=== PATIENT | male | born 1965 | race Caucasian/White ===

== ENCOUNTER 2017-03-22 06:27 | Emergency (ER) | payer OTHER ==
[~2017-03-22] VITALS: Ht 121.9 cm; Wt 108.9 kg
[~2017-03-22 06:27] MED LIST: ASPIR 8181 MG PO; ASPIRIN EC81 MG PO; ATORVASTATIN CA80 MG PO; AUGMENTIN250 MG/5 M PO; AZITHROMYCIN250 MG PO; CARVEDILOL3.125 MG PO; CEPHALEXIN500 MG PO; CLINDAMYCIN HC300 MG PO; CLOPIDOGREL75 MG PO; DILAUDID4 MG PO; HUMALOG MI100 UNIT/2 SUB-Q; HUMALOG100 UNIT/1 SUB-Q; LANTUS100 UNIT/1 SUB-Q; LANTUS100 UNITS/ SUB-Q; LISINOPRIL10 MG PO; LOPERAMIDE2 MG PO; NITROSTAT0.4 MG SL; NOVOLIN R100 UNIT/1 IJ; NOVOLOG100 UNITS/ SUB-Q; OXYCODONE HCL10 MG PO; TYLENOL EXTRA500 MG PO; ZESTORETIC 20-251 EA PO
[2017-03-22] MEDS ORDERED: BACTRIM DS TAB1 EACH PO (12:09)
[2017-08-05] MEDS ORDERED: NEURONTIN300 MG PO (23:02)
== END 2017-03-22 12:25 | disposition home or self-care (01) ==
LOC: ED 06:27
DX: T87.43 Infection of amputation stump, right lower extremity (principal); E10.65 Type 1 diabetes mellitus with hyperglycemia; I10 Essential (primary) hypertension; I25.2 Old myocardial infarction; R11.2 Nausea with vomiting, unspecified; Z94.4 Liver transplant status; Z88.5 Allergy status to narcotic agent; Z79.899 Other long term (current) drug therapy; Z79.4 Long term (current) use of insulin; Z79.82 Long term (current) use of aspirin; Z89.442 Acquired absence of left ankle; Z89.432 Acquired absence of left foot; Z89.431 Acquired absence of right foot; Z89.512 Acquired absence of left leg below knee; Z89.511 Acquired absence of right leg below knee
CPT/HCPCS: 36415; 80053; 81001; 82010; 83605; 85025; 87040; 96361; 96365; 96375; 96376; 99284; J0692; J1885; J2405; J7030

== ENCOUNTER 2017-03-26 01:30 | Emergency (ER) | payer OTHER, MEDICARE ==
[~2017-03-26] VITALS: Ht 121.9 cm; Wt 108.9 kg
[~2017-03-26 01:30] MED LIST changes: +BACTRIM DS TAB1 EACH PO
[2017-03-26] MEDS ORDERED: LISINOPRIL20 MG PO (01:49)
[2017-03-26] MEDS ORDERED: NORCO 5-325 TA1 EACH PO (04:01)
[2017-03-26] MEDS ORDERED: ZOFRAN ODT4 MG PO (04:01)
[2017-08-05] MEDS ORDERED: NEURONTIN300 MG PO (23:02)
== END 2017-03-26 04:22 | disposition home or self-care (01) ==
LOC: ED 01:30
DX: M25.551 Pain in right hip (principal); T87.43 Infection of amputation stump, right lower extremity; I10 Essential (primary) hypertension; E11.9 Type 2 diabetes mellitus without complications; I25.2 Old myocardial infarction; Z95.5 Presence of coronary angioplasty implant and graft; Z88.5 Allergy status to narcotic agent; Z79.82 Long term (current) use of aspirin; Z79.899 Other long term (current) drug therapy; Z79.4 Long term (current) use of insulin; X50.9XXA Other and unspecified overexertion or strenuous movements or postures, initial encounter; Y93.89 Activity, other specified
CPT/HCPCS: 73502; 73560; 80053; 81001; 85025; 85651; 86140; 87070; 87077; 87088; 87186; 87205; 96374; 96375; 99283; J1170; J2405

== ENCOUNTER 2017-03-30 14:28 | Emergency (ER) | payer OTHER, MEDICARE ==
[~2017-03-30] VITALS: Ht 137.2 cm; Wt 117.9 kg
[~2017-03-30 14:28] MED LIST changes: +LISINOPRIL20 MG PO; +NORCO 5-325 TA1 EACH PO; +ZOFRAN ODT4 MG PO
[2017-08-05] MEDS ORDERED: NEURONTIN300 MG PO (23:02)
== END 2017-03-30 21:30 | disposition short-term general hospital (02) ==
LOC: ED 14:28
DX: E11.69 Type 2 diabetes mellitus with other specified complication (principal); M86.9 Osteomyelitis, unspecified; I10 Essential (primary) hypertension; I25.2 Old myocardial infarction; Z89.431 Acquired absence of right foot; Z89.412 Acquired absence of left great toe; Z89.422 Acquired absence of other left toe(s); Z88.5 Allergy status to narcotic agent; Z79.4 Long term (current) use of insulin; Z79.899 Other long term (current) drug therapy; Z95.5 Presence of coronary angioplasty implant and graft; Z79.02 Long term (current) use of antithrombotics/antiplatelets
CPT/HCPCS: 73560; 80053; 81001; 83605; 85025; 85730; 87040; 87070; 87075; 87077; 87186; 87205; 96361; 96374; 96375; 96376; 99285; J0696; J1170; J2405; J3370; J7030; J7060

== ENCOUNTER 2017-05-07 14:47 | Emergency (ER) | payer OTHER, MEDICARE ==
[~2017-05-07] VITALS: Ht 137.2 cm; Wt 117.9 kg
[2017-05-07] MEDS ORDERED: FAMCICLOVIR500 MG PO (18:34)
--- NOTE | 2017-05-08 06:47 | EKG ---
[facility] [address] [facility] [place] [address] Signed Sinus rhythm with frequent premature ventricular complexes Left axis deviation Inferior infarct (cited on or before 21-APR-2016) Abnormal ECG When compared with ECG of 21-APR-2016 18:05, premature ventricular complexes are now present Confirmed by WHITNEY CRUZ MD ([id number]) on 05/08/2017 6:46:47 AM Electronically Signed By: WHITNEY CRUZ MD 05/08/17 0647 PATIENT NAME: SAMINA RIVAS JOI Electrocardiogram DATE OF : 65 PHYSICIAN: WHITNEY CRUZ MD REPORT #: [id number] REPORT IS CONFIDENTIAL AND NOT TO BE RELEASED WITHOUT AUTHORIZATION
[2017-08-05] MEDS ORDERED: NEURONTIN300 MG PO (23:02)
== END 2017-05-07 18:44 | disposition home or self-care (01) ==
LOC: ED 14:47
DX: R07.89 Other chest pain (principal); B02.9 Zoster without complications; I10 Essential (primary) hypertension; E11.9 Type 2 diabetes mellitus without complications; I25.2 Old myocardial infarction; Z95.5 Presence of coronary angioplasty implant and graft; Z88.7 Allergy status to serum and vaccine; Z88.5 Allergy status to narcotic agent; Z79.4 Long term (current) use of insulin; Z79.899 Other long term (current) drug therapy; Z79.82 Long term (current) use of aspirin
CPT/HCPCS: 71045; 80053; 84484; 85025; 85379; 96374; 96375; 96376; 99284; J2405; J3010

== ENCOUNTER 2017-06-14 16:48 | Inpatient (IN) | payer OTHER, MEDICARE ==
[~2017-06-14] VITALS: Ht 137.2 cm; Wt 108.9 kg
[~2017-06-14 16:48] MED LIST changes: +FAMCICLOVIR500 MG PO
[2017-06-14] MEDS ORDERED: BACTRIM DS TAB1 EACH PO (17:10)
--- NOTE | 2017-06-20 09:46 | NUR ---
PT ARRIVED TO UNIT VIA . PT STATES HE HAS HAD L ARM SWELLING, REDNESS AND WEEPING FOR THE PAST FEW DAYS. FINGER TIPS NOTED TO BE RED WITH ABSENTS OF SKIN IN PORTIONS OF THE FINGER AT VARIES STAGES OF HEALING. PT STATES THAT HE HAS BEEN UNABLE TO GET HIS WEDDING RING OFF DUE TO SWELLING. PT IS CONCERNED THAT HIS ARM IS WORSE THEN HIS STUMP AT THIS TIME. WILL SPEAK WITH DR. WILSON PRIOR TO OR.
--- NOTE | 2017-06-20 11:56 | NUR ---
LE 1130: IN TO CHECK ON PT, PT ATCHING TV. AT BEDSIDE. IV ABX INFUSING. CBG 87, PT DENIES SYMPTOMS OF HYPOGLYCEMIA AT THIS TIME. WILL CONTINUE TO MONITOR. NO FURTHER NEEDS AT THIS TIME, CALL LIGHT IN REACH.
--- NOTE | 2017-06-20 15:02 | NUR ---
06/20/17 Rohan2 Destiny Isaacs 1452-PATIENT ARRIVED TO PACU ON 10L MASK O2 SAT 100% PATIENT NONAROUSABLE. RIGHT KNEE DRESSING CDI ELEVATED ON PILLOW ICE APPLIED. THIGH IS WARM TO TOUCH. 1459-NEW ORDER RECEIVED FROM KARLY 02/28 AMP D50 PUSHED GLUCOSE 87 WILL RECHECK IN 30 MINUTES AND GIVE ADDITIONAL HALF AMP IF GLUCOSE LESS THAN 100. PATIENT AROUSING OPENING EYES. 1502-WEANED TO 6L MASK O2 SAT 100%
--- NOTE | 2017-06-20 17:15 | NUR ---
Patient just transferred from surgery. RN in room. Patient given call light and offered emesis bag and warm blanket. Patient has labored breathing and appears to be in pain. Patient appears to have tears on face. RN notified. Patient's family in room. Call light in reach. No other needs at this time.
--- NOTE | 2017-06-20 17:31 | NUR ---
PT GIVEN 12.5 OF PHENERGAN I.V. FOR EMESIS
--- NOTE | 2017-06-20 17:47 | NUR ---
PT REPORTS PAIN IS 6/10 MUCH BETTER AND TOLERABLE AT THIS TIME.
--- NOTE | 2017-06-20 18:15 | NUR ---
PT CAME FROM PACU AT 1455, PT WAS 10/10 PAIN AND VONITING. DILAUDID AND PHENERGAN ADMINISTERED. PT NOW RESTING QUIELTY IN BED. SHADOWING ON DRESSING, DRESSING IS INTACT. PT TOELRATING CLEAR LIQUIDS AT THIS TIME TO ADVANCE TOLERATED. HIS REPORTS HE WILL VOMIT IF GIVEN PO PAIN MEDICATIONS EVEN IF PRE-MEDICATED WITH NAUSEA MEDICINE GIVEN.
--- NOTE | 2017-06-20 19:10 | NUR ---
REPORT RECIEVED BY DAY SHIFT RN. PATIENT RESTING IN BED WATCHING TV. RR 16. PATIENT DENIES ANY NEEDS AT THIS TIME. CALL LIGHT WITHIN REACH.
--- NOTE | 2017-06-20 20:20 | NUR ---
PATIENT REQUESTED FOOD, FOOD GIVEN PER REQUEST. PATIENT DENIES ANY NEEDS AT THIS TIME. PATIENT DIET, ADVANCE TOLERATED. PATIENT PULSE OX 96 ON ROOM AIR. HEART RATE 108. PATIENT EDUCATED ABOUT OUTPUT. PATIENT STATES HE WILL USE URINAL. PATIENT DENIES ANY OTHER NEEDS AT THIS TIME. WILL RETURN WITH EVENING MEDICATIONS. PATIENT RATES PAIN /10. PATIENT REQUESTED PAIN MEDICATIONS. WILL BRING PRN PAIN MEDICATIONS WITH EVENING MEDICATIONS. PATIENT VERBALIZES UNDERSTANDING. CALL LIGHT WITHIN REACH.
--- NOTE | 2017-06-20 20:40 | NUR ---
PATIENT ASSESSMENT COMPLETED. VITAL SIGNS AND I&OS DOCUMENTED. EVENING MEDICATIONS GIVEN PER ORDER. PATIENT STATES PAIN 09/05. PRN DILAUDID GIVEN PER ORDER. ICE PACKS IN PLACE. PATIENT HAS CONTINUOUS FLUIDS RUNNING AT 125MLS/HR. PATIENT 97 PERCENT OXYGEN SATURATION ON RA. PATIENT EATING FOOD, TOLERATING WELL. PATIENT REPORTS NO NAUSEA AT THIS TIME. PATIENT RESTING IN BED WATCHING TV. PATIENT DENIES ANY OTHER NEEDS AT THIS TIME. CALL LIGHT WITHIN REACH.
--- NOTE | 2017-06-20 22:30 | NUR ---
PATIENTS PAIN REASSESSED. PATIENT STATES PAIN 6/10 WITH A GOAL OF 4/10. PRN PAIN MEDICATION GIVEN PER ORDER. PATIENT REPORTS NO NAUSEA AT THIS TIME. PATIENT RESTING IN BED WATCHING TV. PATIENT DENIES ANY OTHER NEEDS AT THIS TIME. WILL CONTINUE TO MONITOR PAIN. CALL LIGHT WITHIN REACH.
--- NOTE | 2017-06-21 00:18 | NUR ---
PATIENT IN BED WATCHING TV. PAIN REASSESSED. PATIENT RATES PAIN 5/10. PATIENT REQUESTED PAIN MEDICATION WHEN AVAILABLE. DIET SODA PROVIDED PER PATIENT REQUEST. COMMUNICATED WITH PATIENT PLAN OF CARE TO MANAGE PAIN. PATIENT VERBALIZED UNDERSTANDING. PATIENT DENIES ANY OTHER NEEDS AT THIS TIME. CALL LIGHT WITHIN REACH.
--- NOTE | 2017-06-21 01:35 | NUR ---
PATIENT IN BED WATCHING TV. 0200 TYLENOL GIVEN PER ORDER. PATIENT RATES PAIN 6/10. VITAL SIGNS AND I&OS DOCUMENTED. PATIENT GIVEN SNACK AND FRESH ICE WATER. FRESH ICE PACKS APPLIED TO RIGHT LEG. SCANT DRAINAGE NOTED ON NOLA WRAP. WILL CONTINUE TO MONITOR. PATIENT DENIES ANY OTHER NEEDS AT THIS TIME. CALL LIGHT WITHIN REACH. ASSESSMENT COMPLETED.
--- NOTE | 2017-06-21 03:10 | NUR ---
PATIENT GIVNE PRN PAIN MEDICATION FOR 6/10 PAIN IN HIS RIGHT KNEE. PATIENT HAS A SCANT AMOUNT OF DRAINAGE ON DRESSING. ICE APPLIED TO RIGHT KNEE. PATIENT DENIES ANY FURTHER NEEDS. CALL LIGHT IN REACH.
--- NOTE | 2017-06-21 05:14 | NUR ---
PATIENT AWAKE MOST OF THE NIGHT. PAIN CONTROLED WITH PRN PAIN MEDICATION PER ORDER. ADA DIET. PATIENT ON CONTINUOUS FLUIDS. PATIENT ON RA AND CONTINUOUS PULSE OX MONITOR. ICE PACKS TO RIGHT KNEE. SCANT DRAINAGE NOTED ON THE UNDERSIDE OF DRESSING ON RIGHT KNEE. RIGHT KNEE ELEVATED ON PILLOW. PATIENT CAN SELF TRANSFER, NOT OUT OF BED DURING THIS SHIFT. PATIENTS LEFT ARM APPEARS EDEMATOUS, ELEVATED ON PILLOWS FOR COMFORT.
--- NOTE | 2017-06-21 06:29 | NUR ---
PATIENT RESTING IN BED. PATIENT RATES PAIN 5/10. PATIENT I&OS AND VITAL SIGNS DOCUMENTED. PATIENT GIVEN PHONE AND MENU SO HE CAN ORDER BREAKFAST. FRESH WATER GIVEN. COFFEE GIVEN TO PATIENT PER PATIENT REQUEST. ASSESSMENT COMPLETED. ICE PACKS IN PLACE ON RIGHT KNEE. SCANT DRAINAGE ON DRESSING NOTED. PATIENT DENIES ANY OTHER NEEDS AT THIS TIME. CALL LIGHT WITHIN REACH. PATIENT WATCHING TV.
--- NOTE | 2017-06-21 06:45 | NUR ---
PATIENT GIVEN PRN PAIN MEDICATION PER ORDER. PATIENT RATES PAIN AT A 6/10. NO FURTHER NEEDS NOTED. CALL LIGHT IN [facility].
--- NOTE | 2017-06-21 07:40 | NUR ---
REPORT RECEIVED FROM SUKH, ASSUMING PATIENT'S CARE AT THIS TIME. PATIENT IN BED AWAKE, REPORT 08/06. PATIENT WAS MEDICATED FOR PAIN PER ENVELOPE STAMPING MACHINE OPERATOR. IV SITE PATENT AND FLUID INFUSING WELL. DRESSING ON BELOW RIGHT KNEE HAS SOME BLOODY DRAINAGE. WILL CONTINUE TO MONITOR.
--- NOTE | 2017-06-21 07:43 | NUR ---
PATIENT SITTING UP IN BED WASHED HANDS AND FACE. PATIENT REFUSED ORAL CARE AND BATH. CALL BUTTON IN REACH. NO OTHER NEEDS AT THIS TIME.
--- NOTE | 2017-06-21 09:30 | NUR ---
PATIENT RESTING BED. REPORTS 6/10 PAIN. PATIENT WAS MEDICATED. OTHER MORNING MED ADMINISTERED BY PHYSICALLY IMPAIRED TEACHER WITH HER INSTRUCTOR.
--- NOTE | 2017-06-21 09:45 | OR ---
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 PROCEDURE: Revision BKA amputation. ANESTHESIA: General. SPECIMENS: The revised stump was sent as a single specimen. WHAT WAS DONE: The patient was taken to the operating room. After anesthesia was induced and airway secured, the right lower extremity was positioned, prepped and draped in a routine sterile fashion. The leg was exsanguinated with elevation. Pneumatic tourniquet about the upper thigh was inflated to 300 mmHg pressure. We then outlined a fishmouth incision and made a fusiform the open draining wound. We then developed full-thickness flaps anteriorly and posteriorly. We did not enter the ulcerated area and it was simply kept on the end of the stump. We then reflected the anterior flap back about 4 cm and resected about an additional 3 cm of distal tibia and then about 3 cm of distal fibula as well. The neurovascular structures were identified, clamped, and doubly ligated. The wound was then gently irrigated. We beveled the anterior aspect of the tibia. We then placed multiple sutures of 0 Vicryl in the deep fascia to close the wound. Subcutaneous tissue was closed with 2-0 Vicryl and the skin with kamlesh. Sterile dressings were applied and the patient was awakened, taken to the recovery room where he arrived in stable condition. Counts were correct and antibiotic protocols were followed. Dong Juarez MD Electronically Signed By: DONG JUAREZ MD 06/21/17 0945 PATIENT NAME: SAMINA RIVAS OPERATIVE REPORT DATE OF : 65 REPORT #: [id number] PHYSICIAN: DONG JUAREZ MD PCP: ALF SORTO MD REPORT IS CONFIDENTIAL AND NOT TO BE RELEASED WITHOUT AUTHORIZATION [address] [place] [address] Signed [facility] /[id number] Copies: ~ Electronically Signed By: DONG JUAREZ MD 06/21/17 0945 PATIENT NAME: SAMINA RIVAS OPERATIVE REPORT DATE OF : 65 REPORT #: [id number] PHYSICIAN: DONG JUAREZ MD PCP: ALF SORTO MD REPORT IS CONFIDENTIAL AND NOT TO BE RELEASED WITHOUT AUTHORIZATION
--- NOTE | 2017-06-21 09:53 | NUR ---
Shortly after giving patient IV dilaudid, pt threw-up approx. 250cc emesis. Pt given IV zofran, cool wash cloth to head, and encouraged to rest. Pt denies nausea through the night with IV dilaudid.
--- NOTE | 2017-06-21 10:00 | NUR ---
STUDENT NURSE REPORTED THAT THE PATIENT HAD EMISIS AND WOULD LIKE TO REST AT THIS TIME. RN NOTIFIED. NO OTHER NEEDS AT THIS TIME.
--- NOTE | 2017-06-21 10:45 | NUR ---
PATIENT RESTING IN BED. REPORTED NAUSEA. PATIENT WAS MEDICATED WITH ZOFRAN BY CHEMIST ORGANIC JOSAFAT. SHIFT ASSESSMENT DONE. PATIENT LUNGS CLEAR. POSITIVE BOWEL TONES. DRESSING ON RIGHT KNEE INTACT WITH SMALL SEROSANGUINEOUSE DRAINAGE. PATIENT STILL COMPLAINING OF PAIN. PATIENT HAS RECEIVED PAIN MED EARLIER. PATIENT HAVE COOL WASH CLOTH OVER FOREHEAD. PATIENT RESTING AT THIS TIME. WILL CONTINUE TO MONITOR
--- NOTE | 2017-06-21 11:10 | NUR ---
PATIENT STILL REPORTED NAUSEA AFTER ZOFRAN WAS ADMINSTERED COUPLE HOURS AGO. PATIENT HAD ABOUT 100 OF EMESIS EARLIER. PATIENT WAS MEDICATED WITH REGLAN. RESTING IN BED AT THIS TIME. COOL WASHCLOTH GIVEN. WILL CONTINUE TO MONITOR
--- NOTE | 2017-06-21 11:15 | NUR ---
DR MILLS WAS IN ROOM TO SEE PATIENT
--- NOTE | 2017-06-21 11:25 | NUR ---
CALL MADE TO DR WILSON ABOUT PATIENT PAIN MEDS.
--- NOTE | 2017-06-21 11:45 | NUR ---
PATIENT SITTING STRAIGHT UP IN BED. FAMILY IN ROOM TO VISIT. PATIENT STILL FEELING NAUSEATED. PATIENT REFUSED LUNCH AT THIS TIME. CALL BUTTON IN REACH. COOL WET WASH CLOTH GIVEN TO PATEINT BY THIS BOOK RETAILER. NO OTHER NEEDS AT THIS TIME.
--- NOTE | 2017-06-21 12:04 | NUR ---
DR WILSON IN ROOM TO SEE PATIENT AND DISCUSS PLAN OF CARE.
--- NOTE | 2017-06-21 15:20 | NUR ---
PATIENT RESTING IN BED, EATING LATE LUNCH. REFUSED TYLENOL. REPORTED THAT HE IS FEELING BETTER A THIS TIME. NO APPARENT DISTRESS NOTED. WILL CONTINUE TO MONITOR
--- NOTE | 2017-06-21 15:30 | NUR ---
PATIENT SITTING UP IN BED WATCHING TV. PATIENT ATE 100% OF HIS LUNCH. PATIENT REQUESTED SOME PAIN MEDICATION. MIYA CHANDRA NOTIFIED. CALL BUTTON IN REACH. NO OTHER NEEDS AT THIS TIME.
--- NOTE | 2017-06-21 16:57 | NUR ---
THIS FAST FOOD SUPERVISOR AND FRANCES GUILLAUME ASSISTED PATIENT UP TO BATHROOM AND BACK TO BED. LINENS CHANGED. PATIENTS GOWN CHANGED. FRESH ICE WATER AND DIET SPRITE AT BEDSIDE TABLE. CALL LIGHT IN REACH. NO OTHER NEEDS AT THIS TIME.
--- NOTE | 2017-06-21 17:20 | NUR ---
PATIENT RESTING IN BED. DENIES NAUSEA AT THIS TIME. PAIN STILL MINIMAL. PATIENT WAS MEDICATED FOR PAIN EARLIER. TOLERATED WELL.
[2017-06-21] MEDS ORDERED: FAMCICLOVIR500 MG PO (17:54)
--- NOTE | 2017-06-21 17:57 | NUR ---
Medications reconciled through interview patient and . Some discrepancies found and corrected
--- NOTE | 2017-06-21 18:03 | NUR ---
PATIENT HAD A FAIR DAY. HAB BEEN NAUSEATED MOST OF THE MORNING. HAD ZOFRAN AND REGLAN THIS AM. HAD A TOTAL 350ML OF EMESIS. PATIENT STILL ON FLUID @ 85. DRESSING ON RIGHT BKA STILL INTACT WITH SMALL DRAINAGE. PATIENT HAD PT TODAY AND SELF TRANSFER FROM BED TO CHAIR AND VICE VERSA. HAD 1 BM TODAY. HES BEEN DOING OK WITH PO PAIN MED. MAY DC TOMORROW.
--- NOTE | 2017-06-21 19:04 | NUR ---
PATIENT RESTING IN BED. IN ROOM. CALL LIGHT IN REACH. FRESH WATER AT BEDSIDE TABLE. NO OTHER NEEDS AT THIS TIME.
--- NOTE | 2017-06-21 21:18 | NUR ---
PT RESTING IN BED REPORTS PAIN 6.5-7/10 AND FEELING NAUSEA AT THIS TIME. PT ADMINISTERED .5MG I.V. DILAUDID AND 6.25MG OF PHENERGAN AT THIS TIME. DRESSING ON RIGHT STUMP HAS MODERATE DRAINAGE WILL RE-ENFORCE WITH ABD AND NOLA WRAP.
--- NOTE | 2017-06-21 23:37 | NUR ---
PT REQUESTED BED SAAVEDRA FOR BM. PT OFF BED SAAVEDRA NOW, HE DID NOT CALL, HE FELL ASLEEP RN CHECKED ON HIM, HE REPORTED HE WAS FINISHED, HE HAD MODERATE AMOUNT OF LIQUID BM.
--- NOTE | 2017-06-22 02:12 | NUR ---
PT RESTING QUIETLY IN BED EYES CLOSED RR 18 BREATHS A MINUTE. NO DISTRESS NOTED. PULSE OXIMTRY AT BEDSIDE READS 96%. PT APPEARS TO BE SLEEPING
--- NOTE | 2017-06-22 04:48 | NUR ---
PT HAS HAD BM THIS SHIFT. PAIN/NAUSEA MEDICATIONS AT START OF SHIFT, PAIN WELL MANAGED PER PT. HE HAS SLEPT WELL OVER NIGHT. LIQUID BM, VOIDING QUANTITY SUFFICIENT. RE-ENFORCED RIGHT STUMP DRESSING AT START OF SHIFT. NO CONCERNS AT THIS TIME
--- NOTE | 2017-06-22 07:53 | NUR ---
SHIFT REPORT RECEIVED FROM HARPER. PATIENT AWAKE IN BED ALERT AND ORIENTED. DRESSING ON RIGHT BKA INTACT, AUTO GLASS INSTALLER NURSE REINFORCE DRESSING. PATIENT REPORT MINIMAL PAIN ON THE RIGHT BELOW KNEE AMPUTATION. WILL CONTINUE TO MONITOR.
--- NOTE | 2017-06-22 08:55 | NUR ---
DID BLOOD SUGAR CHECK THIS MORNING. REFUSED SHOWER TODAY.
[2017-06-22] MEDS ORDERED: ZOFRAN ODT4 MG PO (09:27)
[2017-06-22] MEDS ORDERED: NORCO 10-325 T1 EACH PO (09:28)
--- NOTE | 2017-06-22 12:05 | NUR ---
PATIENT RESTING IN BED EATING LUNCH. CBG CHECKED AND INSULIN ADMINISTERED PER SS. PATIENT REPORTS MILD PAIN ON THE RIGHT KNEE. DENIES THE NEED FOR PAIN MED AT THIS TIME. CALL LIGHT IN REACH.
--- NOTE | 2017-06-22 14:10 | NUR ---
PATIENT RESTING IN BED, REFUSED SCHEDULED TYLENOL. STATED THAT HE "IS GOOD FOR NOW , i DON'T NEED ANY PAIN MEDS." NO OTHER REQUEST. WILL CONTINUE TO MONITOR
--- NOTE | 2017-06-22 14:38 | NUR ---
PT SITTING UP IN BED, ALERT AND ORIENTED. HE IS TO BE DC'D LATER TODAY. SAID HE IS FEELING MUCH BETTER. GOOD, POSITIVE CONVERSATION. 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 EXTENDED A BLESSING, WILL FOLLOW NEEDED
--- NOTE | 2017-06-22 15:08 | NUR ---
PATIENT RESTING IN BED. DENIES NAUSEA. REPORTS MINIMAL PAIN AT THIS TIME. WAITING FOR HIS TO PICK HIM UP. NO DISTRESS NOTED.
--- NOTE | 2017-06-27 07:11 | DS ---
[facility] [address], [place] [address] Signed ADMISSION DATE: 06/20/2017 DISCHARGE DATE: 06/22/2017 FINAL DIAGNOSIS: At the time of discharge is: 1. 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 2. Uncontrolled diabetes. PROCEDURES: Revision BKA stump, right leg. HISTORY OF PRESENT ILLNESS: The patient is a 51-year-old, white male with a long-term poorly-controlled diabetes. He was recently at [facility] where he underwent another revision of the BKA stump. It has already been revised several times. Apparently shortly after a surgery, there was wound break down, which he failed to tell anyone about and he subsequently presented to the clinic here with an open draining wound. It sounds as if they contacted [facility] and they felt they did not have anything further to offer him. HOSPITAL COURSE: The patient was admitted through day surgery on 06/20/2017. The patient was taken to the operating room, where he underwent revision of his BK stump and removal of about 2 cm of additional tibia and primary wound closure. Postoperatively, his struggled with some pain control issues, which has been a chronic problem for him. He also struggles with some nausea issues, which has also been a chronic problem for him. He is being discharged home today. Comfortable on oral pain medication and his nausea has resolved. We will ask him to come back in about 7-10 days to recheck his wound and his incision. We will defer his diabetic management to his primary care provider. MD MING Jacobson/[facility] /[id number] Electronically Signed By: GARRETT WILSON MD 06/27/17710 PATIENT NAME: SAMINA RIVAS DISCHARGE SUMMARY DATE OF : 65 REPORT #: [id number] PHYSICIAN: GARRETT WILSON MD PCP: ALF SORTO MD REPORT IS CONFIDENTIAL AND NOT TO BE RELEASED WITHOUT AUTHORIZATION [address] [place] [address] Signed Copies: ~ Electronically Signed By: GARRETT WILSON MD 06/27/17710 PATIENT NAME: SAMINA RIVAS DISCHARGE SUMMARY DATE OF : 65 REPORT #: [id number] PHYSICIAN: GARRETT WILSON MD PCP: ALF SORTO MD REPORT IS CONFIDENTIAL AND NOT TO BE RELEASED WITHOUT AUTHORIZATION
[2017-08-05] MEDS ORDERED: NEURONTIN300 MG PO (23:02)
== END 2017-06-22 15:50 | disposition home or self-care (01) | DRG 475 ==
LOC: DS 06-20 09:30 → OPS 06-20 09:30 → MS 06-20 09:30 → EDSTATUS 06-20 12:00 → OPS 06-20 12:00 → MS 06-22 15:50
PROVIDERS: ADMIT Orthopaedic Surgery
PROC: 0Y6H0Z3 Detachment at Right Lower Leg, Low, Open Approach (ICD-10-PCS; principal; 2017-06-20 12:00)
DX: T87.43 Infection of amputation stump, right lower extremity (principal); Z68.43 Body mass index [BMI] 50.0-59.9, adult; E11.42 Type 2 diabetes mellitus with diabetic polyneuropathy; E11.65 Type 2 diabetes mellitus with hyperglycemia; R11.0 Nausea; G89.29 Other chronic pain; E66.01 Morbid (severe) obesity due to excess calories; I25.10 Atherosclerotic heart disease of native coronary artery without angina pectoris; I10 Essential (primary) hypertension; Z88.5 Allergy status to narcotic agent; Z88.7 Allergy status to serum and vaccine; Z95.5 Presence of coronary angioplasty implant and graft; Z79.02 Long term (current) use of antithrombotics/antiplatelets; Z79.4 Long term (current) use of insulin; Z79.899 Other long term (current) drug therapy
CPT/HCPCS: 01232; 36415; 73560; 80048; 85025; 94762; 97110; 97161; 97530; J1100; J1170; J1885; J2175; J2250; J2405; J2550; J2704; J2765; J3010; J3370; J7040; J7050; J7120

== ENCOUNTER 2017-06-24 17:04 | Emergency (ER) | payer OTHER, MEDICARE ==
[~2017-06-24] VITALS: Ht 137.2 cm; Wt 108.9 kg
[~2017-06-24 17:04] MED LIST changes: +NORCO 10-325 T1 EACH PO
[2017-06-24] MEDS ORDERED: ONDANSETRON ODT8 MG PO (18:08)
[2017-06-24] MEDS ORDERED: KETOROLAC TROME10 MG PO (18:08)
[2017-08-05] MEDS ORDERED: NEURONTIN300 MG PO (23:02)
== END 2017-06-24 18:23 | disposition home or self-care (01) ==
LOC: ED 17:04
DX: G89.18 Other acute postprocedural pain (principal); Z48.01 Encounter for change or removal of surgical wound dressing; E11.9 Type 2 diabetes mellitus without complications; I10 Essential (primary) hypertension; I25.2 Old myocardial infarction; Z89.612 Acquired absence of left leg above knee; Z89.611 Acquired absence of right leg above knee; Z79.82 Long term (current) use of aspirin; Z88.7 Allergy status to serum and vaccine; Z88.5 Allergy status to narcotic agent; Z79.899 Other long term (current) drug therapy; Z79.4 Long term (current) use of insulin
CPT/HCPCS: 96372; 99282; J1885

== ENCOUNTER 2017-07-01 16:17 | Emergency (ER) | payer OTHER, MEDICARE ==
[~2017-07-01] VITALS: Ht 137.2 cm; Wt 108.9 kg
[~2017-07-01 16:17] MED LIST changes: +KETOROLAC TROME10 MG PO; +ONDANSETRON ODT8 MG PO
[2017-07-01] MEDS ORDERED: CLEOCIN HCL300 MG PO (18:04)
[2017-07-01] MEDS ORDERED: CIPRO500 MG PO (18:04)
[2017-07-01] MEDS ORDERED: NEURONTIN300 MG PO (18:04)
[2017-08-05] MEDS ORDERED: NEURONTIN300 MG PO (23:02)
== END 2017-07-01 19:34 | disposition home or self-care (01) ==
LOC: ED 16:17
DX: T87.43 Infection of amputation stump, right lower extremity (principal); L03.115 Cellulitis of right lower limb; E11.9 Type 2 diabetes mellitus without complications; I10 Essential (primary) hypertension; I25.2 Old myocardial infarction; Z88.7 Allergy status to serum and vaccine; Z88.5 Allergy status to narcotic agent; Z79.4 Long term (current) use of insulin; Z79.899 Other long term (current) drug therapy
CPT/HCPCS: 80053; 83605; 85025; 87040; 87070; 87077; 87186; 96365; 96366; 96368; 99284; J2543; J3370

== ENCOUNTER 2017-07-21 08:30 | Inpatient (IN) | payer OTHER, MEDICARE ==
[~2017-07-21] VITALS: Ht 137.2 cm; Wt 109.3 kg
[~2017-07-21 08:30] MED LIST changes: +CIPRO500 MG PO; +CLEOCIN HCL300 MG PO; +NEURONTIN300 MG PO
--- NOTE | 2017-07-25 14:52 | NUR ---
PT TO FLOOR VIA STRETCHER WITH MIKHAIL HOLLIDAY. PT NAUSEOUS AND PAINFUL BUT WAS ABLE TO SCOOT OVER FROM STRETCHER TO BED. DRESSING CDI. LR @125. GIVEN PHEN 12.5MG. MIYA SALEEM CALLING FOR IV ORDER OF PAIN MEDS. PT IN ROOM. PT ABLE TO DOZE BETWEEN NAUSEA EPISODES. VS STABLE. DR DUNCAN IN TO ASSESS.
--- NOTE | 2017-07-25 14:55 | NUR ---
CALLED TO REQUEST I.V. PAIN MEDICATION DUE TO PT HAVING NAUSEA. PT REPORTS ABLE TO TAKE I.V. DILAUDID, DR. WILSON GAVE ORDER FOR 0.5-1MG I.V. DILAUDID PRN [id number] NEEDED.
--- NOTE | 2017-07-25 15:15 | NUR ---
ADMINISTERED .5 DILAUDID FOR 8\10 PAIN. PT SNORING SPORADICALLY.
--- NOTE | 2017-07-25 15:26 | NUR ---
PT BP NOW 85\58. INFORMED DR DUNCAN, SAID TO BOLUS LR. PT DENIES LIGHTHEADEDNESS. BOLUS STARTED. TOLD TO CALL FOR ANY CONCERNS.
--- NOTE | 2017-07-25 15:36 | NUR ---
07/25/17 1536 [place] 1226 PT ARRIVED IN PACU WITH ORAL AIRWAY IN PLACE. BLOOD SUGAR ON ARRIVAL 71. NEW ORDERS RECEIVED. 1230 ORAL AIRWAY REMOVED. 1236 1/4 AMP D50 GIVEN IVP. C/O R STUMP PAIN. 1245 FENTANYL 50MCG IVP GIVEN. NOTICED R STUMP WAS BLEEDING THROUGH NOLA WRAP. PRESSURE APPLIED TO STUMP WITH ABD'S AND CHUCKS PLACED UNDER PT. ANESTHESIA AND OR CHARGE AT BEDSIDE. TC TO DR TO RETURN TO PACU. 1256 BLOOD SUGAR 88. 1300 1/4 AMP D50 GIVEN IVP. NEW IV'S PLACED IN LFA AND RFA WITH LABS DRAWN WITH IV START. TOURNEQUET PLACED ABOVE R STUMP ON THIGH AND PRESSURE PLACED AT 200. PT C/O R STUMP PAIN. ANESTHESIA GAVE IV MEDS FOR PAIN. [address] ARRIVED IN PACU. DRSG REMOVED FROM R STUMP AND TOURNEQUET TURNED OFF. NO ACTIVE BLEEDING NOTED AT INCISION SITE. REDRESSED R STUMP BY DR AND RN AND PLACED ON PILLOW. ICE AT INCISION SITE. 1330 DR LEFT PACU AND TOLD TO CALL WITH LABS. 1343 C/O R STUMP PAIN. NEW ORDERS RECEIVED. DILAUDID 0.5MG GIVEN IV. PT TAKING SIPS OF WATER. O2 MASK REMOVED WITH SATS 95% ON RA. 1400 C/O R STUMP PAIN. STATES "THE DILAUDID HAS HELPED." DILAUDID 0.5MG GIVEN IVP. SATS 88% ON RA. O2 AT 2L VIA NC WITH SATS 99%. TAKING SIPS OF WATER. 1410 WHILE TRANSPORTING TO MED SURG, PT C/O NAUSEA. COOL CLOTH TO FOREHEAD. TO ROOM 109 AT 1426.
--- NOTE | 2017-07-25 16:17 | NUR ---
CALLED DR WILSON TO ALERT TO NEW BP AND ASK IF HE HAD ANY NEW ORDERS OR WANTED ANOTHER CBC. HE SAID "NO, MORNING IS FINE" AND NO NEW ORDERS. PLACED LINDER WO DIFFICULTY, DRAINED 475 OUT. BOLUS CONTINUING TO INFUSE. TORADOL HELD AND TRYING TO DC.
--- NOTE | 2017-07-25 18:25 | NUR ---
STARTED PLATLETS. VS STABLE, PT TOLERATING WELL. EDUCATED ON S\S OF REACTION AND INSTRUCTED TO CALL. PT STATES HIS LINDER IS HURTING HIM BUT IT IS DRAINING WELL.
--- NOTE | 2017-07-25 18:27 | NUR ---
PT LOST SIGNIFICANT AMT OF BLOOD IN PACU TODAY. ADMINISTERING PLATELETS. VS STABLE AFTER BOLUS THIS AFTERNOON. LINDER DRAINING LIGHT YELLOW URINE, HOURLY CHECKS TO MAKE SURE IT IS >55CC\\HR. DC'D TORADOL. PERLA CONSULT. PAIN CONTROLED WITH PO DILAUDID. DRESSING HAS BRIJESH RED BLOOD SLOWLY SEEPING THROUGH ON OUTER ASPECT OF DRESSING.
[2017-07-25] MEDS ORDERED: BACTRIM DS TAB1 EACH PO (18:30)
[2017-07-25] MEDS ORDERED: LEVEMIR FL100 UNIT/2 SUB-Q (18:32)
[2017-07-25] MEDS ORDERED: LANTUS100 UNITS/ SUB-Q ×2 (18:45)
--- NOTE | 2017-07-25 18:46 | NUR ---
MED REC COMPLETE
--- NOTE | 2017-07-25 19:00 | NUR ---
BEDSIDE REPORT RECEIVED FROM MIYA VILLANUEVA. PT AWAKE IN BED, ON 2L OXYGEN BY NC SPO2 100%, HR 98. PLATELETS INFUSING INFUSING WNL LEFT FORARM, IVF INFUSING RIGHT FOREARM WNL. PT RATES PAIN 7/10 IN RIGHT LEG. SMALL AMT SEROSANGUINOUS DRAINAGE ON CHUX, NOLA WRAP IN PLACE. WILL CONTINUE TO MONITOR. CALL LIGHT IN REACH, NO REQUESTS AT THIS TIME. IN ROOM.
--- NOTE | 2017-07-25 19:40 | NUR ---
PLATELET INFUSION COMPLETE AT THIS TIME, VITALS WNL, NO REACTION NOTED. PT AWAKE, LYING IN BED, HOB ELEVATED. CALL LIGHT IN REACH.
--- NOTE | 2017-07-25 20:00 | NUR ---
PT DRY HEAVING, C/O NAUSEA, NO EMESIS, PRN PHENERGEN ADMINISTERED AT THIS TIME WNL. IVF INFUSING WNL. PRN OXYCODONE ADMINISTERED FOR 7/10 PAIN IN RIGHT LEG AT THIS TIME. PT REFUSES SCHEDULED MILK OF MAG DESPITE EDUCATION PROVIDED. IV SITES FLUSHED WNL, LR INFUSING WNL AT 125 ML/HR. SPO2 100% ON 2L OXYGEN NC FOR SLEEP. CBG 161 AT THIS TIME. CALL LIGHT IN REACH.
--- NOTE | 2017-07-25 20:13 | NUR ---
PATIENT IS RESTING IN BED. FAMILY AT THE BEDSIDE. RN IN ROOM. PATIENT DENIES ANY COMMENTS ,QUESTIONS, OR CONCERNS. NO NEEDS NOTED. CALL LIGHT IN REACH.
--- NOTE | 2017-07-25 20:40 | NUR ---
ASSESSMENT COMPLETE, DRAINAGE ON NLOA BANDAGE OUTLINED WITH RN TANK TRUCK OPERATOR SERA ASSIST, SEROSANGUINOUS DRAINAGE NOTED. PT CONTINUES TO C/O 7/10 PAIN, DROWSY, CLOSING EYES AND AWAKENING EASILY. LUNGS CLEAR THROUGHOUT ALL LOBES, HR REGULAR RHYTHM, SPO2 100% ON 2L OXYGEN BY NC. IVF INFUSING WNL. CSM INTACT BUE. CALL LIGHT IN REACH, LIGHTS OFF IN ROOM.
--- NOTE | 2017-07-25 21:48 | NUR ---
PHONE CALL TO DR. DUNCAN, UPDATED ON URINE OUTPUT 100 ML LAST THREE HOURS, LINDER DRAINING AT THIS TIME AFTER FLUSHING. TELEPHONE ORDER TO MONITOR URINE OUTPUT OVER NEXT HOUR, CALL IF <55 ML.
--- NOTE | 2017-07-25 22:07 | NUR ---
CHECKED ON PT, APPEARS TO BE SLEEPING, EYES CLOSED, SNORING, SPO2 100% ON 2L OXYGEN BY NC. CHEST RISE EQUAL BILATERALLY. IVF INFUSING. LIGHTS OFF IN ROOM.
--- NOTE | 2017-07-25 23:13 | NUR ---
LINDER CATHTER EMPTIED 20 ML, LINDER LINE FLUSHED NO ADDL URINE OUPUT. BLADDER SCANNED FOR 199 ML. MD NOTIFIED OF OUTPUT OVER ONE HOUR. TELEPHONE ORDER TO INCREASE IVF TO 150 ML/HR, FLUID BOLUS 500 ML LR OVER ONE HOUR NOW. ORDERS REPEATED BACK.
--- NOTE | 2017-07-25 23:31 | NUR ---
IVF BOLUS INFUSING WNL. PT RATES PAIN 5.5/10 REQUESTING PRN PAIN MEDICATION, PRN DILAUDID PO ADMINISTERED. PT C/O INCREASED PAIN WITH MOVEMENT. RIGHT LEG ASSESSED, NO NEW DRAINAGE NOTED ON NOLA WRAP. PT ABLE TO LIFT RIGHT THIGH FOR ASSESSMENT POSTERIORLY. PT HAS CALL LIGHT IN REACH, GIVEN SALTINE CRACKERS W LIFE CYCLE ASSESSMENT ANALYST. PT INSTRUCTED TO USE CALL LIGHT FOR NAUSEA, NO NAUSEA REPORTED AT THIS TIME.
--- NOTE | 2017-07-26 00:29 | NUR ---
IVF BOLUS COMPLETE. PT APPEARS TO BE SLEEPING, SNORING, EYES CLOSED, SPO2 98% W 2 L OXYGEN BY NC ON, HR 90, CONT. PULSE OX ON. IVF INFUSING WNL. LINDER DRAINING YELLOW URINE. LIGHTS OFF IN ROOM. WILL CONTINUE TO MONITOR.
--- NOTE | 2017-07-26 02:30 | NUR ---
PT ASSESSMENT COMPLETE. PRN PHENERGEN ADMINISTERED FOR NAUSEA, NO EMESIS. PT DROWSY, RATES PAIN "THE SAME". NO NEW DRAINAGE NOTED ON RIGHT LEG FROM START OF SHIFT, ICE PACK IN PLACE AT THIS TIME UNDER RIGHT LEG. LINDER DRAINING CONCENTRATED URINE 25 MLS, MD NOTIFIED, BLADDER SCANNED FOR 200 MLS. LUNGS SOUND CLEAR, PT SNORING, AWAKENS EASILY TO VOICE. SENSATION INTACT BLE. CSM INTACT BUE. IV IN LEFT UPPER ARM INFILTRATED, D/C'D WNL. CALL LIGHT IN REACH. LIGHTS OFF IN ROOM.
--- NOTE | 2017-07-26 02:38 | NUR ---
PHONE CALL TO DR. DUNCAN, UPDATED OF PTS URINE OUTPUT AND BP. TELEPHONE ORDER FOR 500 ML LR FLUID BOLUS OVER ONE HOUR, ORDER REPEATED BACK.
--- NOTE | 2017-07-26 03:42 | NUR ---
IVF BOLUS COMPLETE, PT APPEARS TO BE SLEEPING, SNORING, SPO2 98% ON 2L OXYGEN BY NC. CALL LIGHT IN REACH, IVF INFUSING WNL.
--- NOTE | 2017-07-26 05:07 | NUR ---
IN PT ROOM, SLEEPING, AWAKENS TO VOICE, VITALS COMPLETE, AFEBRILE. MD NOTIFIED OF BP 94/67 (73), 10 ML URINE OUTPUT, ATTEMPTS TO FLUSH CATHETER, MANIPULATE, NO ADDITIONAL URINE OUTPUT YIELDED. TELEPHONE ORDER TO REMOVE LINDER, PLACE SMALLER TANZANIAN CATHTER OR COUDE.
--- NOTE | 2017-07-26 05:38 | NUR ---
YELLOW PUS NOTED WITH REMOVAL OF LINDER CATHETER, COUDE CATHETER INSERTED WITHOUT COMPLICATIONS, NO URINE OUTPUT WITH PLACEMENT. MD NOTIFIED. TELEPHONE ORDER TO CONTINUE IVF AND FOLLOW LABS.
--- NOTE | 2017-07-26 06:29 | NUR ---
RIGHT LEG ELEVATED ON PILLOW THROUGHOUT SHIFT, SENSATION INTACT, ICE TO EXTREMITY. SMALL AMT SEROSANGUINOUS DRAINAGE THROUGHOUT SHIFT. SURGICAL SITE COVERED WITH NOLA WRAP. RECEIVED 2 IVF BOLUSES OF 500 ML LR THIS SHIFT FOR LOW URINE OUTPUT. COUDE CATHETER PLACED. IVF INFUSING WNL. PAIN WELL MANAGED WITH PO DILAUDID PRN AND PO OXYCODONE. PRN PHENERGEN ADMINISTERED X 2 FOR NAUSEA, NO EMESIS. MINIMAL ORAL INTAKE.
--- NOTE | 2017-07-26 07:48 | NUR ---
CALLED DR. DUNCAN FOR UPDATE ON LABS AND PATIENTS CONDITION. NEW ORDERS RECIEVED. CALLED DR. WILSON TO UPDATE.
--- NOTE | 2017-07-26 07:52 | NUR ---
LAB IN ROOM TO DO REPEAT BMP. UROMETER ADDED. CALLED FOR EKG NOW. BLOOD SUGAR TAKEN. NEW ORDERS ADDED.
--- NOTE | 2017-07-26 08:00 | NUR ---
PATIENT RESTING IN BED, EYES CLOSED. IN ROOM. LAB IN ROOM DRAWING BLOOD. PATIENT STATES HE FEELS NAUSEATED AND HAS NO APPETITE. PATIENT CALL LIGHT IN REACH. NO OTHER NEEDS AT THIS TIME.
--- NOTE | 2017-07-26 08:02 | NUR ---
EKG IN ROOM. TEL ADDED.
--- NOTE | 2017-07-26 08:12 | NUR ---
PATIENTS BLOOD SUGAR 136. RT IN ROOM. PATIENT DROWSY BUT FOLLOWS COMMANDS. EKG DONE.
--- NOTE | 2017-07-26 08:23 | NUR ---
DR. WILSON CALLED BACK. UPDATE GIVE. NO NEW ORDERS. DR. DUNCAN CALLED FOR NEW ORDERS.
--- NOTE | 2017-07-26 09:32 | NUR ---
ROUNDED WITH DR. DUNCAN. PLAN TO MOVE PATIENT TO THE CCU. NEW ORDER FOR NOW ZOFRAN. TITRATED FLUIDS TO 50ML/HR. PATIENT HAVING LEG SPASMS AT THIS TIME. DEXTROSE AND 10 UNITS OF INSULIN GIVEN IV. PATIENTS HR CURRENTLY 120. BREATHING TREATMENTS COMPLETE
--- NOTE | 2017-07-26 09:45 | NUR ---
REPORT GIVEN TO JUANCARLOS HOLLIDAY. UPDATED AND PATEINT OF PLAN TO TRANSFER TO CCU. UA SENT TO LAB. MESSAGE LEFT WITH DR. WILSON AT OFFICE IN REGARDS TO PATEINT BEING TREANSFERED TO CCU.
--- NOTE | 2017-07-26 10:00 | NUR ---
PATIENT ARRIVES FROM MED/SURG IN HIS BED WITH HIS HARPER ACCOMPANYING. PT IS NAUESOUS AND PAINFUL UPON ARRIVAL. COLD WASH CLOTH ON FOREHEAD. ARRIVAL VS ARE HR 116, SP02 96% ON ROOM AIR, BLOOD PRESURE 102/56 (68). PATIENT RATING HIS PAIN IN HIS RIGHT LEG A 7/10. PT VERY VISIBLY IN QUITE A BIT OF PAIN. IVF CONTINUE AT 50 ML/HR. PT HAS AN 18 G IN RIGHT FOREARM. LINDER INTACT.
--- NOTE | 2017-07-26 10:10 | NUR ---
PATIENT THROWING UP THICK YELLOW SPUTUM LIKE MATERIAL. HELPED OVER TO LEFT SIDE AND SUCTIONING OUT PT'S MOUTH. DILAUDID IV TO BE GIVEN. PT VERY UNCOMFORTABLE. HR UP TO THE 120s-130s WITH THIS PAIN.
--- NOTE | 2017-07-26 10:16 | NUR ---
0.25 MG IV DILAUDID GIVEN FOR PAIN. SOME SHADOW DRAINAGE NOTED ON RIGHT STUMP THROUGH NOLA WRAP ON THE OUTSIDE. CONTINUE TO MONITOR.
--- NOTE | 2017-07-26 10:49 | NUR ---
BLOOD PRESSURE NOTED TO BE LOW, READING 69/46. CUFF READJUSTED AND RE-TAKEN FOR 78/48. PT LAID DOWN MORE IN BED. PT STATES HE ISN'T FEELING VERY WELL, STILL NAUSEOUS AND PAINFUL, BUT DOES SEEM TO BE RESTING FAIRLY WELL. PT AWAKENS EASILY. 3RD BLOOD PRESSURE REVEALS 85/50(59). CONTINUE TO MONITOR CLOSELY.
--- NOTE | 2017-07-26 11:36 | NUR ---
ULTRASOUND DONE ON KIDNEYS. PT RESTING IN BED. 250 ML BOLUS COMPLETE. LAST BP 95/58 (66). HR 111. PT NOW ON 2 L OXYGEN AFTER FALLING ASLEEP AND SATS DROPPING TO 88% WITH SNORING.
--- NOTE | 2017-07-26 13:15 | NUR ---
PT IN AND OUT FROM STILL FROM SURGERY. HARPER BY HIS SIDE. EXTENDED A BLESSING, WILL FOLLOW A SNEEDED
--- NOTE | 2017-07-26 13:22 | OR ---
[facility] [address], [place] [address] Signed DATE OF OPERATION: 07/25/2017 SURGEON: Garrett Wilson MD PREOPERATIVE DIAGNOSIS: Infected below-knee amputation stump, right. POSTOPERATIVE DIAGNOSIS: Infected below-knee amputation stump, right. PROCEDURE: Right above-knee amputation. ANESTHESIA: General. COMPLICATIONS: There were no intraoperative complications. SPECIMEN: Specimen was the amputated portion of the leg from the site of resection through the old BK stump. ESTIMATED BLOOD LOSS: There was minimal blood loss. WHAT WAS DONE: The patient was taken to the operating room and placed on the operating room table in a supine position. After anesthesia was induced and airway secured, the patient was positioned, prepped and draped in a routine sterile fashion. The leg was exsanguinated with elevation and the pneumatic tourniquet was inflated to 300 mmHg pressure. Symmetrical anterior and posterior flaps were then outlined using as much of the residual skin that looked viable as we could. Skin was divided sharply as was subcutaneous tissue. Hemostasis was achieved with electrocautery. We then deepened the incision through the quad tendon and retracted the quadriceps proximally about three and half inches. We then transected the femur and completed the posterior flap. The femoral neurovascular bundle was identified and doubly ligated. The wound was then gently irrigated. Routine wound closure was accomplished in multiple layers using 0 Vicryl for the deep fascia, 2-0 Vicryl in the subcutaneous tissue, and 3-0 nylon in the skin. A sterile dressing was applied and the patient was awakened and taken to the Electronically Signed By: GARRETT WILSON MD 07/26/17 1322 PATIENT NAME: SAMINA RIVAS OPERATIVE REPORT DATE OF : 65 REPORT #: [id number] PHYSICIAN: GARRETT WILSON MD PCP: ALF SORTO MD REPORT IS CONFIDENTIAL AND NOT TO BE RELEASED WITHOUT AUTHORIZATION [facility] [address] [place] [id number] Signed recovery room where he arrived in stable condition. Counts were correct and antibiotic protocols were followed. Garrett Wilson MD WFB/MODL /[id number] Copies: ~ Electronically Signed By: GARRETT WILSON MD 07/26/17 1322 PATIENT NAME: SAMINA RIVAS OPERATIVE REPORT DATE OF : 65 REPORT #: [id number] PHYSICIAN: GARRETT WILSON MD PCP: ALF SORTO MD REPORT IS CONFIDENTIAL AND NOT TO BE RELEASED WITHOUT AUTHORIZATION
--- NOTE | 2017-07-26 14:48 | NUR ---
PER PROVIDER, PT IS SALINE LOCKED AT THIS TIME. LAST BP 125/66, WILL CONTINUE TO MONITOR FOR HYPOTENSION. PT C/O FEELING CHILLED, ORAL TEMP OBTAINED AND 98.8 AT THIS TIME. PT C/O ONGOING PAIN IN LEG, RATING 8/10, STATES LAST DOSE BROUGHT PAIN DOWN TO 5/10 BUT WENT BACK TO 8/10. 12.5 FENTANFL GIVEN, WILL REASSESS PAIN, WILL CONTINUE TO MONITOR FOR ONGOING PAIN.
--- NOTE | 2017-07-26 15:33 | NUR ---
PHONE CALL ORDER FROM DR. DUNCAN FOR ONE UNIT OF BLOOD RC'D. ORDER READ BACK AND CONFIRMED BY PROVIDER.
--- NOTE | 2017-07-26 16:30 | NUR ---
PT CONTINUES TO C/O CHILLS, ORAL TEMP 99.3 AT THIS TIME. PT TO RC 1 UNIT PRBC, CONSENT SIGNED, INFORMATION REGARDING BLOOD ADMINISTRATION AND S/SX OF TRANSFUSION REACTION PROVIDED. ALL QUESTIONS ANSWERED AT THIS TIME.
--- NOTE | 2017-07-26 16:45 | NUR ---
1 UNIT PRBC RUNNING AT 75 ML/HR, ORAL TEMP NOTED TO BE 100.2, DENIES S/SX OF TRANSFUSION REACTION. WILL REASSESS TEMP.
--- NOTE | 2017-07-26 17:30 | NUR ---
PRBC RUNNING AT 175 ML/HR, ORAL TEMP 100.4, PT DENIES S/SX OF TRANSFUSION REACTION. DR. DUNCAN NOTIFIED OF TEMP, ORDER RC'D FOR 500 MG PO TYLENOL, ORDER READ BACK AND CONFIRMED BY PROVIDER.
--- NOTE | 2017-07-26 18:30 | NUR ---
1 UNIT OF PRBC COMPLETED AT THIS TIME. NO S/SX OF TRANSFUSION REACTION NOTED, TEMP AFTER PO TYLENOL 99.6 AT THIS TIME.
--- NOTE | 2017-07-26 18:56 | NUR ---
NAUSEA IMPROVED SINCE ARRIVAL ON UNIT. HYPOTENSION HAS IMPROVED AND LAST BP 131/65, HR 110-115. SPO2 CONTINUES TO BE STABLE RANGING FROM 95-99% ON RA. PT IS SALINE LOCKED AND OAL HYDRATION IS ENCOURAGED. CLEAR LIQUID DIET ORDERED TOLERATED, CLEAR LIQUID TRAY ORDERED, PT TOLERATED WELL. PAIN MANAGEMENT CONTINUES TO BE A PRIORITY AT THIS TIME. PT INCEASED FROM 12.5 TO 25 FENTANYL. URINE OUTPUT HAS IMPROVED OUR THE LAST TWO HOURS, LAST OUTPUT 40 ML. WILL CONTINUE TO MONITOR URINE OUTPUT.
--- NOTE | 2017-07-26 20:15 | NUR ---
NOLA BANDAGE ON R KNEE, NOT TO BE REMOVED OR CHANGED UNTIL 07/27; SANGUENOUS FLUID SHADOWING ON DISTAL POSTERIOR PORTION OF DRESSING, MARKED FROM PREVIOUS SHIFT FOR ADVANCEMENT; WILL CONTINUE TO MONITOR ADVANCEMENT OF SHADOWING
--- NOTE | 2017-07-26 20:33 | NUR ---
PT HAD SMALL AMOUNT OF EMESIS AT THIS TIME; PT RECEIVED PRN ZOFRAN, PRN FENTANYL AND PRN OXYCODONE PRIOR TO; PT DENIES ANY PAIN RELEIF AT THIS TIME
--- NOTE | 2017-07-26 21:13 | NUR ---
PT ON BEDPAN AT THIS TIME, PAIN IN R KNEE WITH MOVEMENT; MD NOTIFIED OF LABS URINE OUTPUT, AND MINIMAL REPSONSE TO PAIN MEDICATION
--- NOTE | 2017-07-26 22:02 | NUR ---
PT TURNED TO L SIDE FOR COMFORT, RECEIVED PRN FENTANYL AND REGLAN; APPEARS TO BE RESTING MORE COMFORTABLY AT THIS TIME; WILL REASSESS PAIN
--- NOTE | 2017-07-27 04:20 | NUR ---
SHADOWING MARKED ON PATIENT NOLA WRAP DRESSING ON R KNEE AT THIS TIME, SMALL AMOUNT OF PROGRESSION NOTED. PT RATES PAIN AT 4/10 AND WAS RESTING COMFORTABLY WHEN RN ENTERED ROOM, PT REPORTS PAIN ACCEPTABLE FOR TOLERATING AND DENIES PAIN MEDICATIONS AT THIS TIME.
--- NOTE | 2017-07-27 08:25 | NUR ---
UPON ENTRANCE INTO ROOM, PT NAUSEATED AND DRY HEAVING. PT APPEARS DIAPHORETIC AND PALE, STATES HE HAS 8/10 PAIN ALONG WITH NAUSEA. AFTER BEING MEDICATED, ASSISTED PT WITH REPOSTIONING. AFTER A FEW MINUTES, NAUSEA SUBSIDED. PT LUNGS CLEAR, RESPRIATORY RATE OF 18, BREATHING EVEN AND UNLABORED. PT APPEARS TO HAVE MILD GENERALIZED EDEMA. ABDOMEN MINIMALLY DISTENDED, PT HAS NOT HAD A BOWEL MOVEMENT IN 4 DAYS, PT REFUSED MIRLAX AT THIS TIME DUE TO NAUSEA. DRESSING OVER SURGICAL SITE ON R LEG IS CLEAN, DRY, AND INTACT. PT NOW RESTING, AT BEDSIDE, CALL LIGHT WITHIN REACH. NO FURTHER REQUESTS AT THIS TIME.
--- NOTE | 2017-07-27 09:08 | NUR ---
PT STATES PAIN LEVEL IS STILL AT 7/10, BUT NAUSEA HAS LESSENED SUBSTANTAILLY. PAIN MEDICATION GIVEN. REMAINS AT BEDSIDE, CALL LIGHT WITHIN REACH.
--- NOTE | 2017-07-27 09:36 | NUR ---
IN ROOM WITH PATIENT AND WHILE UNIT OF PACKED CELLS IS INFUSING. PT STATES PAIN LEVEL HAS DECREASED TO A MANAGEABLE 5/10 AND NAUSEA HAS DECREASED WELL. PT IS LAYING WITH EYES CLOSED, BREATHING IS EVEN AND UNLABORED.
--- NOTE | 2017-07-27 09:46 | NUR ---
DR WILSON IN TO SEE PATIENT, REMOVED DRESSING FROM RIGHT LEG SURGICAL SITE, STATES HE WOULD LIKE IT OWULD BE DRESSED WITH A FEW ABD PADS AND AN NOLA BANDAGE. PLAN OF CARE DISCUSSED, ALL QUESTIONS ANSWERED.
--- NOTE | 2017-07-27 10:05 | NUR ---
CLEANED R LEG SURGICAL SITE WITH NS AND APPLIED ABDS AND AN NOLA BANDAGE. PT PAINFUL AND BEGAN DRY HEAVING DURING DRESSING CHANGE. MEDICATED FOR NAUSEA. PT NOW STATES NAUSEA HAS IMPROVED. ATTEMPTE TO HAVE BOWEL MOVEMENT ON BEDPAN AT THIS TIME. CALL LIGHT WITHIN REACH, AT BEDSIDE
--- NOTE | 2017-07-27 10:25 | NUR ---
DR DUNCAN IN TO SEE PT. PT STATES HE WOULD LIKE TO EAT ALTHOUGH HE IS NAUSEATED. PLAN OF CARE ADRESSED AND ALL QUESTIONS ANSWERED. REMAINS AT BEDSIDE. NO FURTHER REQUESTS AT THIS TIME.
--- NOTE | 2017-07-27 11:00 | EKG ---
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
--- NOTE | 2017-07-27 11:39 | NUR ---
PT ATE LUNCH, WELL TOLERATED, NO NAUSEA OR VOMITING. PT IS IN BED WATCHING TELEVESION, REMAINS AT BEDSIDE.
--- NOTE | 2017-07-27 13:16 | NUR ---
THIS PROCESS COACH AGREES WITH STUDENTS NURSE CHARTING THIS AMNanette TRENT STUDENT NURSE FROM [facility] HAS COMPLETED ALL THE ASSEMENTS AND CAHRTING THAT IS REQUIRED. SHE ALSO COMPLETED THE BLOOD TRANSFUSION ONE UNIT OF PRBC'S. THE PATIENT TOLERATED THIS WELL. PT HAS HAD LESS NAUSEA WHEN PT ALLOWED STAFF TO ORDER SOLID FOODS FOR HIM. CURRENTLY SITTING UP IN THE ROOM EATTING LUNCH.
--- NOTE | 2017-07-27 14:24 | NUR ---
PT COMPLAINS OF INCREASED PAIN AND DISCOMFORT IN RIGHT LEG. ASSISTED PT WIH REPOSTIONING IN BED AND PAIN MEDICATION. ENROBER TENDER LAKSHMI IN TO SEE PATIENT. AT BEDSIDE AND CALL LIGHT WITHIN REACH.
--- NOTE | 2017-07-27 14:48 | NUR ---
PT ALERT, ORIENTED AND SITTING UP IN BED. HE MENTIONED THAT HE SENT HIS OUT FOR A BREAK AND TO GET SOME LUNCH. HAD A GOOD HONEST VISIT WITH PT ABOUT HIS HEALTH, AND COPING WITH THE CHANGES HE WILL CONTINUE TO ENCOUNTER. HIS VISION IS LEAVING HIM, AND HE IS SAD-HE ENJOYS READING AND IS HAVING TO FIND NEW WAYS TO LEARN AND STAY INFORMED. PT DOES HAVE A GOOD ATTITUDE IN SPITE OF HIS HEALTH. HE FEARS HIS HANDS HE WILL LOOSE NEXT. HARPER RETURNED AND HAD A GOOD VISIT WITH HER ALSO. THEY ASKED ABOUT AREA CHURCHES TO VISIT, AND SHARED A CONCERN ABOUT THEIR SON ALAINA SERVING IN [place] IN THE . REQUESTED PRAYER FOR HIM, AND THEMSELVES. WILL CONTINUE TO FOLLOW NEEDED
--- NOTE | 2017-07-27 15:50 | NUR ---
PATIENT ARRIVED ON MED/SURG UNIT AT 1550 IN HIS BED BEING TRANSFERED BY CCU STAFF TO THE MED/SURG WHILE I RECIEVED REPORT FROM OTHER CCU STAFF. PATIENT SETTLED IN HIS NEW ROOM BY MED/SURG CHARGE NURSE AND PATIENT'S AT BEDSIDE.
--- NOTE | 2017-07-27 20:00 | NUR ---
RECEIVED REPORT AT 1900, FOUND PT IN BED WITH AT BEDSIDE. PAIN STATED PAIN 7/10 EVEN WITH 10MG OF OXY RECEIVED AT 1700. I WILL TALKE TO MD DUNCAN ABOUT IT. PT HAD NO OTHER CONCERNS AT THAT TIME.
--- NOTE | 2017-07-27 21:34 | NUR ---
PATIENT TRANSFERED FROM CCU THIS AFTRNOON JUST BEFORE 1600. PATIENT HAD A SURGICAL REVISION OF RT BKA TO AKA PERFORMED BY . 1700 PATIENT HAD RECEIVED 1OMG OF OXYCODONE FOR 7/10 RT AKA STUMP PAIN AND IV REGLAN TO PREVENT NAUSEA FROM PAIN MEDICATION WHICH WAS EFFECTIVE AND PATIENT ATE A GOOD DINNER WITH FAMILY AT BEDSIDE. PATIENT'S PAIN ONLY DECREASED TO A 6/10 LEVEL FROM THE PAIN MEDICATION GIVEN AND THIS WAS PASSED ON TO BUSINESS INFO CONSULTANT RN. PATIENT'S RIGHT AKA STUMP DRESSING REMAINED CDI FROM TIME OF ARRIVAL ON MED/SURG TO END OF DAYSHIFT. WAS CALLED BEFORE FIRST PAIN MEDICATION ON THE FLOOR GIVEN JUST TO VERIFY PLAN TO PREVENT NAUSEA PROMETHAZINE HAD BEEN DC'D AND ZOFRAN WAS NOT GIVEN LONG ENOUGH AGO TO BE REPEATED. ALSO DISCUSSED WITH PATIENT HAD NOT HAD A BM IN 4 DAYS AND RECIEVED PERMISSION TO GIVE THE AM DOSE OF MIRALAX PATIENT HAD EARLIER REFUSED IN THE EVENING. THIS WAS PASSED ON TO NIGHTSHIFT RN.
--- NOTE | 2017-07-27 22:00 | NUR ---
V/S ARE WDL, ALL LOBES ARE CLEAR. ABD SOUNDS ARE PRESENT. RIGHT AKA INCISION SITE IS C/D/I. PRN OXY HAD TO BE INCREASED TO 15-20MG PRN Q4 DUE TO LACK OF PAIN CONTROL. PT AT THIS TIME HAS 0/10 PAIN. PT WAS PUT ON OVERCOIL STEPPER DUE TO PRN PAIN MEDS. NO NEW ISSUES NOTED AT THIS TIME. BG WAS 262, 6 UNITS OF NOVOLOG WAS GIVEN ALONG WITH 10 UNITS OF LEVEMIR INSULIN.
--- NOTE | 2017-07-28 00:02 | NUR ---
PT HAS NO NEEDS AT THIS TIME.
--- NOTE | 2017-07-28 01:57 | NUR ---
medicated wtih Reglan 10 mg IV . pt dry heaving and having emesis thick phlegm
--- NOTE | 2017-07-28 02:00 | NUR ---
PT HAS LOST IV SITE AFTER RN WAS GIVING HIM REGLAN. SO FAR WE HAVE BEEN UNABLE TO ESTABLISH ANOTHER IV SITE. SUPERVISIOR IS TRYING AT THIS TIME.
--- NOTE | 2017-07-28 04:00 | NUR ---
PT AT THIS TIME HAS NO IV SITE PRESENT. SEVERAL STAFF MEMBERS TRIED BUT TO NO AVAIL. MD DUNCAN IS AWARE. PT HAS NAUSEA STILL. RECEIVED NEW ORDERS FROM MD DUNCAN. THERE HAS BEEN NO CHANGE IN STATUS FOR THIS PT OTHERWISE.
--- NOTE | 2017-07-28 05:11 | NUR ---
PATIENT EXPERIENCING MODERATE NAUSEA, DRY HEAVING NO EMESIS. SUBLINGUEAL ZOFRAN PROVIDED. PATIENT SITTING UP IN BED. DENIES ANY OTHER NEEDS. WILL CONTINUE TO MONITOR.
--- NOTE | 2017-07-28 06:53 | NUR ---
VITALS AND I&OS DONE AND CHARTED. GARBAGES EMPTIED. BEDSIDE TABLE AND CALL LIGHT WITHIN REACH.
--- NOTE | 2017-07-28 07:19 | NUR ---
RECIEVED BEDSIDE REPORT FROM MIYA FLEMING. PT SLEEPING, BREATHING EVEN AND UNLABORED.
--- NOTE | 2017-07-28 07:30 | NUR ---
PATIENT UP IN BED. IN BR. FRESH ICEWATER FOR PATIENT AND COFFEE FOR . NO OTHER NEEDS. CALL LIGHT IN REACH
--- NOTE | 2017-07-28 09:23 | NUR ---
PATIENT IN BED, EYES CLOSED. PATIENT HAS HIS PLATE COVER BEHIND HIS HEAD, AND PILLOWS UNDER EACH ARM, STATING THE HARD SURFACE BEHIND HIS HEAD HELPS WITH HIS HEADACHE. VITALS AND I/OS CHARTED. IN ROOM, CALL LIGHT IN REACH. NO OTHER NEEDS.
--- NOTE | 2017-07-28 12:29 | NUR ---
ROUNDED WITH DR DUNCAN. PT REQUESTS HIS LINDER OUT AND ASSISTANCE WITH TRANSFERS. ORDERED TO REMOVE LINDER, 225ML OUT. KAILASH RUBIO. PT ORDERED LUNCH.
--- NOTE | 2017-07-28 13:43 | NUR ---
PT RESTING IN BED, COMPLAINING OF THE SMELL OF FRESH PAINT, WHICH I ALSO NOTICED. THERE WAS NO PAINTING ANYWHERE NEAR, AND DID NOT HELP PT WHO WAS ALSO DEALING WITH BOUTS OF NAUSEA. I CONSULTED WITH WIND ENERGY TECHNICIANMIYA XIE, DECISION WAS MADE TO MOVE PT TO RM 115. PT AND HARPER VERY PLEASED. BRIEF VISIT PT GOT ADJUSTED TO NEW RM. THEY REQUESTED PRAYER, WILL FOLLOW NEEDED
--- NOTE | 2017-07-28 17:16 | NUR ---
PT HAS BEEN REFUSING PAIN MEDS ALL DAY D/T NAUSEA, ADAMENTLY REFUSED PAIN MEDS WHILE TO DR DUNCAN. PT IS NOW IN TEARS REQUESTING PAIN MEDS. PHONE CALL TO DR DUNCAN WHO WILL PUT IN ORDERS FOR HYDROCODONE.
--- NOTE | 2017-07-28 17:44 | NUR ---
PT REPORTED THAT HE WOULD NOT TAKE ANY ORAL PAIN MEDICATIONS. ALL ORAL PAIN MEDS WERE D/C. AT 1700 PT WAS IN TEARS AND REQUESTED MEDS. PT REPORTS SPASMS AND PHANTOM LIMB PAIN. PT WAS PREMEDICATED FOR NAUSEA AND GIVEN PAIN MEDS. PT UP WITH PHYSICAL THERAPY. PT RIGHT STUB REDRESSED, NOLA WRAP HAD SHADOWING, ABD PADS HAD MODERATE DRAINAGE.
--- NOTE | 2017-07-28 20:00 | NUR ---
RECEIVED REPORT AT 1900, FOUND PT IN BED WITH FAMILY AT BEDSIDE. PT STILL HAD SOME NAUSEA. PAIN AT THAT TIME WAS TOLERABLE PER PT.
--- NOTE | 2017-07-28 22:00 | NUR ---
V/S ARE WDL, ALL LOBES ARE CLEAR. DRESSING ON RIGHT AKA IS WDL C/D/I. BG WAS 166, PT RECEIVED 2 UNITS OF NOVOLOG AND SCHEDULED 10 UNITS LEVEMIR. PLAN FOR TONIGHT IS TO KEEP UP WITH ALL NAUSEA MEDICATIONS AND PAIN MEDICATIONS. THERE ARE NO NEW CONCERNS AT THIS TIME.
--- NOTE | 2017-07-29 00:15 | NUR ---
NAUSEA AT THIS TIME IS BETTER BUT NOT RESOLVED. PAIN IS STILL 4/10. PT IS READY TO GET SOME SLEEP AT THIS TIME.
--- NOTE | 2017-07-29 02:00 | NUR ---
PAIN AT THIS TIME IS 10. NORCO PRN X2 WAS GIVEN ALONG WITH PHENERGAN 12.5MG PO. PT IS BACK TO SLEEPING AT THIS TIME.
--- NOTE | 2017-07-29 04:00 | NUR ---
PT WAS SLEEPING. PT WAS WOKEN UP DISCUSSED WITH HIM. PT DENIED N/V AND STATED THAT PAIN IS STILL ABOUT THE SAME (06/06).
--- NOTE | 2017-07-29 05:25 | NUR ---
AT START OF SHIFT PT HAD UNCONTROLLED PAIN AND NAUSEA. AT THIS TIME BOTH IS WELL CONTORLLED. V/S ARE WDL, ALL LOBES ARE CLEAR. RIGHT AKA INCISIONS SITE DRESSING IS C/D/I. OUTPUT IS ADQUATE. I HAVE NO NEW CONCERNS FOR THIS PT AT THIS TIME.
--- NOTE | 2017-07-29 07:32 | NUR ---
BEDSIDE REPORT RECEIVED FROM AMNA HOLLIDAY. ALL QUESTIONS ANSWERED. PATIENT AND SIGNIFICANT OTHER AT BEDSIDE AND BOTH AWAKE. WHITE BOARD UPDATED.
--- NOTE | 2017-07-29 09:08 | NUR ---
LAB DRAWING BLOOD TO RUN BMP NOW.
--- NOTE | 2017-07-29 10:37 | NUR ---
pt c/o nausea. phenergan given. no urine output in last 4 hours.
--- NOTE | 2017-07-29 13:51 | NUR ---
pt is sitting up in bed with call light in reach. pt is still working on his lunch and asked for more ice water
--- NOTE | 2017-07-29 14:59 | NUR ---
RN SPOKE WITH DR WILSON RE: PT'S MEDICATION. PER MD, DO NOT RESTART PLAVIX FOR AT LEAST ONE WEEK TO PREVENT "OOZING" FROM WOUND. DR WILSON WILL RESTART AT HIS FOLLOW UP APPT. PER DR WILSON, PT DOES NOT NEED BACTRIM DS. FOR OTHER HOME MEDS, CONTINUE DOING WHAT HE WAS DOING PRIOR TO SURGERY PER DR WILSON.
--- NOTE | 2017-07-29 15:34 | NUR ---
DISCHARGE TEACHING COMPLETE. DISCUSSED WOUND CARE, FOLLOW UP AND WHEN TO TO CALL THE MD. PT AND SPOUSE VERBALIZED UNDERSTANDING. PT REPORTS NAUSEA, BUT DECLINES MEDICATIONS. PT ESCORTED OUT BY NURSING STAFF.
--- NOTE | 2017-08-02 11:11 | DS ---
[facility] [address] [place], [place] [address] Signed ADMISSION DATE: 07/25/2017 DISCHARGE DATE: 07/29/2017 DIAGNOSES AT THE TIME OF DISCHARGE: 1. Nonhealing below-knee stump, right. 2. Acute renal failure. PROCEDURES: Right above-knee amputation. SURGEON: Dong Juarez MD. COLLEGE SERVICE OFFICER: Dr. Raman. HISTORY OF PRESENT ILLNESS: The patient has a long history of poorly controlled diabetes and has been struggling with multiple BKA revision attempts over the last year or two. The last revision attempt clearly was unsuccessful and he reached the point where he was comfortable proceeding with an above-knee amputation. HOSPITAL COURSE: The patient was admitted through Day Surgery, taken to the operating room, where he underwent an uneventful above-knee amputation. In the recovery room, he had some bleeding, but responded to elevation and pressure. Postoperatively, he did develop significant and fairly severe acute renal failure of unclear etiology. He was managed by the hospitalist and at this time, his potassium has returned to normal. His BUN and creatinine are back in the normal range and Dr. Raman feels he is medically stable for discharge. His incision is clean and dry. There is no drainage and no other findings. At present time, he does not want to have any pain medicine to take home because all the narcotic pain medicines give him fairly severe nausea. We will plan on discharging him home today on no additional medications. He will continue with his diabetic management per his primary care provider. Follow up in a week for a wound check. Dong Juarez MD Electronically Signed By: DONG JUAREZ MD 08/02/17 1111 PATIENT NAME: SAMINA RIVAS DISCHARGE SUMMARY DATE OF : 65 REPORT #: [id number] PHYSICIAN: DONG JUAREZ MD PCP: ALF SORTO MD REPORT IS CONFIDENTIAL AND NOT TO BE RELEASED WITHOUT AUTHORIZATION [address] [place], [place] [address] Signed B/MODL /[id number] Copies: ~ Electronically Signed By: DONG JUAREZ MD 08/02/17 1111 PATIENT NAME: SAMINA RIVAS DISCHARGE SUMMARY DATE OF : 65 REPORT #: [id number] PHYSICIAN: DONG JUAREZ MD PCP: ALF SORTO MD REPORT IS CONFIDENTIAL AND NOT TO BE RELEASED WITHOUT AUTHORIZATION
[2017-08-05] MEDS ORDERED: NEURONTIN300 MG PO (23:02)
== END 2017-07-29 15:36 | disposition home or self-care (01) | DRG 474 ==
LOC: MS 07-25 07:03 → CCU 07-26 09:45 → MS 07-27 15:50
PROVIDERS: ADMIT Orthopaedic Surgery
PROC: 0Y6C0Z3 Detachment at Right Upper Leg, Low, Open Approach (ICD-10-PCS; principal; 2017-07-25 10:30)
DX: T87.43 Infection of amputation stump, right lower extremity (principal); N17.0 Acute kidney failure with tubular necrosis; D62 Acute posthemorrhagic anemia; E11.22 Type 2 diabetes mellitus with diabetic chronic kidney disease; E11.65 Type 2 diabetes mellitus with hyperglycemia; I12.9 Hypertensive chronic kidney disease with stage 1 through stage 4 chronic kidney disease, or unspecified chronic kidney disease; N18.3 Chronic kidney disease, stage 3 (moderate); I25.10 Atherosclerotic heart disease of native coronary artery without angina pectoris; E78.5 Hyperlipidemia, unspecified; G89.4 Chronic pain syndrome; N28.89 Other specified disorders of kidney and ureter; E87.5 Hyperkalemia; R11.0 Nausea; T40.605A Adverse effect of unspecified narcotics, initial encounter; Y92.239 Unspecified place in hospital as the place of occurrence of the external cause; Z88.5 Allergy status to narcotic agent; Z89.512 Acquired absence of left leg below knee; Z88.7 Allergy status to serum and vaccine; Z79.02 Long term (current) use of antithrombotics/antiplatelets; Z79.82 Long term (current) use of aspirin; Z79.4 Long term (current) use of insulin; Z79.891 Long term (current) use of opiate analgesic; Z79.899 Other long term (current) drug therapy
CPT/HCPCS: 01232; 36415; 36430; 76770; 80048; 80069; 82570; 84300; 84540; 85025; 86850; 86900; 86901; 86920; 93005; 93010; 94640; 94762; 97162; J0690; J1170; J2250; J2405; J2550; J2704; J2765; J3010; J3370; J7040; J7050; J7120; P9016; P9035

== ENCOUNTER → 2017-08-05 | Emergency (ER) | payer OTHER, MEDICARE ==
[~2017-08-05] VITALS: Ht 137.2 cm; Wt 109.3 kg
[~2017-08-05] MED LIST changes: +LEVEMIR FL100 UNIT/2 SUB-Q
--- NOTE | 2017-08-06 10:49 | EKG ---
[facility] [address] [facility] [place] [address] Signed Sinus rhythm with 1st degree AV block Left axis deviation Cannot rule out Inferior infarct (cited on or before 21-APR-2016) Abnormal ECG When compared with ECG of 26-JUL-2017 07:57, No significant change was found Confirmed by WHITNEY CRUZ MD ([id number] on 08/06/2017 10:48:55 AM Electronically Signed By: WHITNEY CRUZ MD 08/06/17 1049 PATIENT NAME: SAMINA RIVAS JOI Electrocardiogram DATE OF : 65 PHYSICIAN: WHITNEY CRUZ MD REPORT #: [id number] REPORT IS CONFIDENTIAL AND NOT TO BE RELEASED WITHOUT AUTHORIZATION
== END ==
LOC: ED 22:51
DX: R07.2 Precordial pain (principal); E11.9 Type 2 diabetes mellitus without complications; I10 Essential (primary) hypertension; I25.2 Old myocardial infarction; Z88.7 Allergy status to serum and vaccine; Z88.5 Allergy status to narcotic agent; Z79.82 Long term (current) use of aspirin; Z79.4 Long term (current) use of insulin; Z79.899 Other long term (current) drug therapy
CPT/HCPCS: 71045; 80053; 84484; 85025; 85610; 85730; 93005; 93010; 96374; 96375; 96376; 99285; J1170; J2405; J2550

== ENCOUNTER 2017-08-26 20:27 | Emergency (ER) | payer OTHER, MEDICARE ==
[~2017-08-26] VITALS: Ht 137.2 cm; Wt 109.3 kg
[2017-08-26] MEDS ORDERED: CEFAZOLIN1 GM/10 M1 (21:08)
--- NOTE | 2017-08-26 22:19 | EKG ---
[facility] [address] 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
== END 2017-08-26 23:13 | disposition home or self-care (01) ==
LOC: ED 20:27
DX: T87.43 Infection of amputation stump, right lower extremity (principal); R50.9 Fever, unspecified; E11.9 Type 2 diabetes mellitus without complications; I10 Essential (primary) hypertension; I25.2 Old myocardial infarction; Z88.7 Allergy status to serum and vaccine; Z88.5 Allergy status to narcotic agent; Z79.82 Long term (current) use of aspirin; Z79.4 Long term (current) use of insulin; Z79.899 Other long term (current) drug therapy; Z89.612 Acquired absence of left leg above knee; Z89.611 Acquired absence of right leg above knee
CPT/HCPCS: 71045; 80053; 81001; 83605; 83880; 84484; 85025; 85610; 85730; 93005; 93010; 99283